=== PATIENT | male | born 1950 | race Caucasian/White ===

== ENCOUNTER 2022-12-15 12:01 | Day surgery (SDC) | payer MEDICARE, BC ==
[2022-12-11 11:13] LABS: BASOPHILS # (AUTO) 0.1 X10'3 (0-0.2); EOSINOPHILS # (AUTO) 0.2 X10'3 (0-0.9); EOSINOPHILS % (AUTO) 3.3 % (0-6); HEMATOCRIT 52.1 % (42.0-52.0); HEMOGLOBIN 17.4 g/dl (14.0-17.9); LYMPHOCYTES # (AUTO) 1.6 X10'3 (1.1-4.8); LYMPHOCYTES % (AUTO) 21.5 % (21-51); MEAN CORPUSCULAR HEMOGLOBIN 33.1 PG (27.0-31.0); MEAN CORPUSCULAR HGB CONC 33.3 g/dL (33.0-36.5); MEAN CORPUSCULAR VOLUME 99.4 FL (78-98); MEAN PLATELET VOLUME 8.3 FL (7.4-10.4); MONOCYTES # (AUTO) 0.7 X10'3 (0-0.9); MONOCYTES % (AUTO) 9.2 % (2-12); NEUTROPHILS # (AUTO) 4.7 X10'3 (1.8-7.7); PLATELET COUNT 207 X10'3 (140-440); RED BLOOD COUNT 5.24 X10'6 (4.70-6.10); RED CELL DISTRIBUTION WIDTH 13.8 % (11.5-14.5); WHITE BLOOD COUNT 7.2 X10'3 (4.5-11.0)
[2022-12-11 11:26] LABS: ALBUMIN 4.3 G/DL (3.4-5.0); ANION GAP 10 (8-16); BLOOD UREA NITROGEN 31 MG/DL (7-18); BUN/CREATININE RATIO 18.8 (10.0-20.0); CALCIUM 9.1 MG/DL (8.5-10.1); CHLORIDE 100 MMOL/L (99-107); CREATININE 1.65 MG/DL (0.60-1.10); GLUCOSE 119 MG/DL (70-104); POTASSIUM 4.3 MMOL/L (3.5-5.1); SODIUM 138 MMOL/L (135-145); TOTAL CARBON DIOXIDE 28.4 MMOL/L (24-32); eGFR 41 ML/MIN
[2022-12-11 11:27] LABS: APTT 37 SECONDS (22-32)
[2022-12-15] VITALS (9 sets, daily range): BP systolic 101–120; BP diastolic 52–90
[~2022-12-15] VITALS: Ht 180.3 cm; Wt 102.8 kg
[~2022-12-15 12:01] MED LIST: ALBUTEROL; ASPI-1265 PO; ATOR40TA71 PO; CELE-193 PO; FLO110IN; FURO40TA4 PO; METO-395 PO; MULT-1085 PO; SACU1TAB7 PO; SEMA1PEN; SPIR50TA5 PO; TADA5TAB13 PO
[2022-12-15] MEDS ORDERED: MIDAZolam 1mg/ml 10ml vial IV ONE (12:20)
[2022-12-15] MEDS ORDERED: fentaNYL/PF 50MCG/1 ML 2ML syringe IV ONE (12:20)
[2022-12-15] MEDS ORDERED: normal saline 1000ml 1,000 ML IV SCH (12:20)
[2022-12-15] MEDS ORDERED: NITR0.4T51 SL (12:49)
[2022-12-15] MEDS ORDERED: SACU1TAB4 PO (12:49)
[2022-12-15] MEDS ORDERED: LEVO50TA8 PO (12:49)
[2022-12-15] MEDS ORDERED: SEMA1PEN3 SUBCUT (12:49)
[2022-12-15] MEDS ORDERED: APIX5TAB3 PO (12:49)
[2022-12-15] MEDS ORDERED: MULT-227 PO (12:49)
[2022-12-15] MEDS ORDERED: EMPA25TA PO (12:49)
[2022-12-15] MEDS ORDERED: VITA-268 PO (12:52)
[2022-12-15] MEDS ORDERED: SOTA80TA73 PO (12:52)
== END 2022-12-15 14:45 | disposition home or self-care (01) ==
LOC: SSTAY O 12:01
PROVIDERS: ATTEND Student in an Organized Health Care Education/Training Program
DX: I48.0 Paroxysmal atrial fibrillation (principal); I11.0 Hypertensive heart disease with heart failure; I50.9 Heart failure, unspecified; E11.9 Type 2 diabetes mellitus without complications; I42.0 Dilated cardiomyopathy; G47.33 Obstructive sleep apnea (adult) (pediatric); Z95.810 Presence of automatic (implantable) cardiac defibrillator; Z85.828 Personal history of other malignant neoplasm of skin; Z79.899 Other long term (current) drug therapy; Z79.01 Long term (current) use of anticoagulants; Z88.8 Allergy status to other drugs, medicaments and biological substances; Z91.040 Latex allergy status; Z88.2 Allergy status to sulfonamides
CPT/HCPCS: 36415; 80048; 82948; 85025; 85610; 85730; 92960; 93005; J2250; J3010; J7030; A4620